=== PATIENT | male | born 1955 | race Caucasian/White ===

== ENCOUNTER 2017-05-11 07:15 | Emergency (ER) | payer OTHER ==
[~2017-05-11] VITALS: Ht 180.3 cm; Wt 108.9 kg
[2017-05-11] MEDS ORDERED: QUINAPRIL10 M1 PO (07:36)
[2017-05-11] MEDS ORDERED: TOPIRAMATE100 M2 PO (07:37)
[2017-05-11] MEDS ORDERED: ASPIRIN ADULT L81 M2 PO (07:37)
[2017-05-11] MEDS ORDERED: B COMPLETE1 EACH PO (07:37)
[2017-05-11] MEDS ORDERED: VITAMIN C500 M6 PO (07:38)
[2017-05-11] MEDS ORDERED: VITAMIN D1000 IU PO (07:38)
[2017-05-11] MEDS ORDERED: CALCIUM500 M1 PO (07:39)
[2017-05-11] MEDS ORDERED: MAGNESIUM250 M1 PO (07:40)
[2017-05-11] MEDS ORDERED: B121000 MCG/1 IM (07:41)
[2017-05-11] MEDS ORDERED: OMEPRAZOLE20 M2 PO (07:43)
[2017-05-11] MEDS ORDERED: PERCOCET 325 MG1 TA7 PO (08:37)
[2017-05-11 09:00] VITALS: BP 149/84
== END 2017-05-11 08:47 | disposition home or self-care (01) ==
LOC: ED 07:15
DX: S52.502A Unspecified fracture of the lower end of left radius, initial encounter for closed fracture (principal); S52.615A Nondisplaced fracture of left ulna styloid process, initial encounter for closed fracture; Z79.82 Long term (current) use of aspirin; Z79.899 Other long term (current) drug therapy; W18.30XA Fall on same level, unspecified, initial encounter; Y93.89 Activity, other specified; Y92.9 Unspecified place or not applicable; Y99.9 Unspecified external cause status

== ENCOUNTER → 2017-05-12 | Outpatient (CLI) | payer OTHER ==
[~2017-05-12] MED LIST: ASPIRIN ADULT L81 M2 PO; B COMPLETE1 EACH PO; B121000 MCG/1 IM; CALCIUM500 M1 PO; MAGNESIUM250 M1 PO; OMEPRAZOLE20 M2 PO; PERCOCET 325 MG1 TA7 PO; QUINAPRIL10 M1 PO; TOPIRAMATE100 M2 PO; VITAMIN C500 M6 PO; VITAMIN D1000 IU PO
== END | disposition home or self-care (01) ==
LOC: ORTHO 04:06
DX: S52.592A Other fractures of lower end of left radius, initial encounter for closed fracture (principal); X58.XXXA Exposure to other specified factors, initial encounter; Y93.89 Activity, other specified; Y92.89 Other specified places as the place of occurrence of the external cause; Y99.8 Other external cause status

== ENCOUNTER 2021-09-28 11:39 | Inpatient (IN) | payer MEDICARE ==
[~2021-09-28] VITALS: Ht 180.3 cm; Wt 119.4 kg
[2021-09-28] VITALS (7 sets, daily range): BP systolic 107–154; BP diastolic 65–92
[2021-09-28 12:20] LABS: BASO % 0.9 % (0.0-1.0); EOS # 0.2 10*3/uL (0.0-0.4); EOS % 3.4 % (1.0-4.0); HEMATOCRIT 42.2 % (42.0-52.0); LYMPH % 21.9 % (27.0-41.0); MEAN CELL VOLUME 90.4 fl (80.0-94.0); MEAN CORPUSCULAR HGB 28.9 pg (27.0-31.0); MEAN PLATELET VOLUME 7.7 fl (9.6-12.3); MONO # 0.5 10*3/uL (0.1-1.0); MONO % 11.2 % (3.0-9.0); NEUT # 2.8 10*3/uL (2.3-7.9); NEUT % 62.6 % (47.0-73.0); PLATELET COUNT AUTOMATED 209 10*3/uL (130-400); RED BLOOD COUNT 4.67 10*6/uL (4.50-5.90); RED CELL DISTRI WIDTH 13.4 % (0-14.5); WHITE BLOOD COUNT 4.4 10*3/uL (4.8-10.8)
[2021-09-28 12:31] LABS: ACT PARTIAL THROMBO TIME 26.6 SECONDS (20.0-32.1); INTERNATIONAL NORM RATIO 0.9 (2.0-3.5)
[2021-09-28 12:37] LABS: ALBUMIN 3.3 gm/dl (3.1-4.5); ALKALINE PHOSPHATASE 126 U/L (45-117); BUN 14 mg/dl (7-24); CHLORIDE 111 mmol/L (98-107); CREATININE 0.72 mg/dL (0.70-1.30); LIPASE 256 U/L (73-393); POTASSIUM 4.4 mmol/L (3.5-5.1); SGOT/AST 24 IU/L (3-35); SGPT/ALT 20 U/L (12-78); SODIUM 141 mmol/L (136-145)
[2021-09-28 15:18] LABS: BILIRUBIN Negative (Negative); BLOOD Negative (Negative); CLARITY Clear (Clear); COLOR Yellow (Yellow); GLUCOSE Negative (Negative); KETONE 1+ (Negative); LEUKO ESTERASE Trace (Negative); NITRITE Negative (Negative); PH 5.5 (4.5-8.0); SPECIFIC GRAVITY 1.025 (1.001-1.030)
[2021-09-28 15:25] LABS: BACTERIA TRACE; EPITHELIAL CELLS 0-2; RBC 0-2 rbc/hpf (0-2)
[2021-09-29] VITALS (7 sets, daily range): BP systolic 106–143; BP diastolic 54–78
[2021-09-29 06:44] LABS: BASO % 0.8 % (0.0-1.0); EOS # 0.1 10*3/uL (0.0-0.4); EOS % 3.3 % (1.0-4.0); HEMATOCRIT 36.4 % (42.0-52.0); LYMPH # 1.3 10*3/uL (1.3-4.4); LYMPH % 33.5 % (27.0-41.0); MEAN CELL VOLUME 90.3 fl (80.0-94.0); MEAN CORPUSCULAR HGB 28.8 pg (27.0-31.0); MEAN CORPUSCULAR HGB CONC 31.9 g/dl (33.0-37.0); MEAN PLATELET VOLUME 8.4 fl (9.6-12.3); MONO # 0.6 10*3/uL (0.1-1.0); MONO % 14.8 % (3.0-9.0); NEUT # 1.9 10*3/uL (2.3-7.9); NEUT % 47.6 % (47.0-73.0); PLATELET COUNT AUTOMATED 185 10*3/uL (130-400); RED BLOOD COUNT 4.03 10*6/uL (4.50-5.90); RED CELL DISTRI WIDTH 13.4 % (0-14.5); WHITE BLOOD COUNT 3.9 10*3/uL (4.8-10.8)
[2021-09-29 06:46] LABS: ALBUMIN 2.6 gm/dl (3.1-4.5); ALKALINE PHOSPHATASE 109 U/L (45-117); BUN 20 mg/dl (7-24); CHLORIDE 106 mmol/L (98-107); CHOLESTEROL 119 mg/dL (<200); CREATININE 0.71 mg/dL (0.70-1.30); LDL CHOLESTEROL 19 mg/dL (9-159); POTASSIUM 3.8 mmol/L (3.5-5.1); SGOT/AST 17 IU/L (3-35); SGPT/ALT 17 U/L (12-78); SODIUM 140 mmol/L (136-145); TOTAL PROTEIN 5.8 gm/dL (6.4-8.2); TRIGLYCERIDES 108 mg/dl (<150)
[2021-09-30] VITALS: BP 120/83
[2021-09-30 06:13] LABS: BASO % 0.8 % (0.0-1.0); EOS # 0.1 10*3/uL (0.0-0.4); EOS % 3.3 % (1.0-4.0); HEMATOCRIT 37.4 % (42.0-52.0); LYMPH % 24.5 % (27.0-41.0); MEAN CELL VOLUME 89.9 fl (80.0-94.0); MEAN CORPUSCULAR HGB 28.8 pg (27.0-31.0); MEAN CORPUSCULAR HGB CONC 32.1 g/dl (33.0-37.0); MEAN PLATELET VOLUME 8.3 fl (9.6-12.3); MONO # 0.5 10*3/uL (0.1-1.0); NEUT # 2.3 10*3/uL (2.3-7.9); NEUT % 59.1 % (47.0-73.0); PLATELET COUNT AUTOMATED 186 10*3/uL (130-400); RED BLOOD COUNT 4.16 10*6/uL (4.50-5.90); RED CELL DISTRI WIDTH 13.2 % (0-14.5); WHITE BLOOD COUNT 3.9 10*3/uL (4.8-10.8)
[2021-09-30 06:52] LABS: BUN 17 mg/dl (7-24); CHLORIDE 109 mmol/L (98-107); CREATININE 0.66 mg/dL (0.70-1.30); POTASSIUM 3.7 mmol/L (3.5-5.1); SODIUM 140 mmol/L (136-145)
[2021-09-30 08:00] VITALS: BP 114/68
[2021-09-30 12:00] VITALS: BP 118/70
[2021-09-30 16:00] VITALS: BP 98/65
[2021-09-30 20:00] VITALS: BP 107/61
[2021-10-01] VITALS: BP 113/69
[2021-10-01 08:00] VITALS: BP 105/58
[2021-10-01 13:41] VITALS: BP 148/80
[2021-10-01 16:00] VITALS: BP 128/73
[2021-10-01 20:00] VITALS: BP 109/66
[2021-10-02] VITALS: BP 102/63
[2021-10-02 08:00] VITALS: BP 104/66
[2021-10-02] MEDS ORDERED: LOPRESSOR25 MG PO (08:23)
[2021-10-02] MEDS ORDERED: CLOPIDOGREL75 MG PO (08:23)
[2021-10-02] MEDS ORDERED: ATORVASTATIN CA80 M1 PO (08:23)
== END 2021-10-02 10:18 | disposition home or self-care (01) | DRG 69 ==
LOC: ED 11:39 → EDHOLD 13:34 → 4E 13:34 → EDHOLD 15:12 → 4E 09-29 01:16
PROVIDERS: Hospitalist; Internal Medicine; Physician Assistant; ADMIT Emergency Medicine; ATTEND Emergency Medicine
PROC: 4A02XM4 Measurement of Cardiac Total Activity, External Approach (ICD-10-PCS; principal; 2021-10-01)
PROC: 3E073KZ Introduction of Other Diagnostic Substance into Coronary Artery, Percutaneous Approach (ICD-10-PCS; 2021-10-01)
DX: G45.9 Transient cerebral ischemic attack, unspecified (principal); E87.2 Acidosis; I47.1 Supraventricular tachycardia; I69.354 Hemiplegia and hemiparesis following cerebral infarction affecting left non-dominant side; D64.9 Anemia, unspecified; E78.5 Hyperlipidemia, unspecified; I10 Essential (primary) hypertension; Z82.3 Family history of stroke; Z87.891 Personal history of nicotine dependence; I25.2 Old myocardial infarction; Z82.49 Family history of ischemic heart disease and other diseases of the circulatory system

== ENCOUNTER → 2021-12-01 | Day surgery (SDC) | payer MEDICARE ==
[~2021-12-01] VITALS: Ht 180.3 cm; Wt 122.0 kg
[~2021-12-01] MED LIST changes: +ATORVASTATIN CA80 M1 PO; +CLOPIDOGREL75 MG PO; +LOPRESSOR25 MG PO
[2021-12-01 10:20] VITALS: BP 112/60
[2021-12-01 11:54] VITALS: BP 84/49
[2021-12-01 12:10] VITALS: BP 90/50
[2021-12-01 12:24] VITALS: BP 92/60
[2021-12-01 14:53] VITALS: BP 84/49
== END | disposition home or self-care (01) ==
LOC: SDC 11-27 12:30
PROVIDERS: ATTEND Internal Medicine Cardiovascular Disease
DX: R53.82 Chronic fatigue, unspecified (principal); I63.9 Cerebral infarction, unspecified; Q21.1 Atrial septal defect; I10 Essential (primary) hypertension; I25.10 Atherosclerotic heart disease of native coronary artery without angina pectoris; E11.9 Type 2 diabetes mellitus without complications; M19.90 Unspecified osteoarthritis, unspecified site; G40.909 Epilepsy, unspecified, not intractable, without status epilepticus; I25.2 Old myocardial infarction; Z20.822 Contact with and (suspected) exposure to COVID-19; Z79.899 Other long term (current) drug therapy

== ENCOUNTER → 2022-03-30 | Outpatient (CLI) | payer MEDICARE | END | disposition home or self-care (01) | LOC: ORTHO 04:59 | PROVIDERS: ATTEND Orthopaedic Surgery | DX: M25.852 Other specified joint disorders, left hip (principal); Z96.642 Presence of left artificial hip joint ==

== ENCOUNTER → 2023-01-27 | Outpatient (CLI) | payer MEDICARE ==
[2023-01-28 02:06] LABS: TOTAL PROTEIN, SERUM 6.5 g/dL (6.0-8.5)
[2023-01-28 14:07] LABS: A/G RATIO 1.4 (0.7-1.7); ALBUMIN 3.8 g/dL (2.9-4.4); ALPHA-1-GLOBULIN 0.2 g/dL (0.0-0.4); ALPHA-2-GLOBULIN 0.8 g/dL (0.4-1.0); GAMMA GLOBULIN 0.7 g/dL (0.4-1.8); GLOBULIN, TOTAL 2.7 g/dL (2.2-3.9); M-SPIKE Not Observed g/dL (Not Observed)
== END | disposition home or self-care (01) ==
LOC: LAB 08:37
PROVIDERS: ATTEND Physician Assistant Medical
DX: G62.9 Polyneuropathy, unspecified (principal); Z98.84 Bariatric surgery status

== ENCOUNTER → 2023-04-07 | Outpatient (CLI) | payer MEDICARE ==
[2023-04-07 10:04] LABS: BASO % 0.4 % (0.0-1.0); EOS # 0.2 10*3/uL (0.0-0.4); EOS % 3.4 % (1.0-4.0); HEMATOCRIT 43.2 % (42.0-52.0); LYMPH # 1.2 10*3/uL (1.3-4.4); LYMPH % 24.2 % (27.0-41.0); MEAN CELL VOLUME 91.5 fl (80.0-94.0); MEAN CORPUSCULAR HGB 29.2 pg (27.0-31.0); MEAN CORPUSCULAR HGB CONC 31.9 g/dl (33.0-37.0); MEAN PLATELET VOLUME 8.7 fl (9.6-12.3); MONO # 0.5 10*3/uL (0.1-1.0); NEUT # 3.1 10*3/uL (2.3-7.9); NEUT % 62.8 % (47.0-73.0); PLATELET COUNT AUTOMATED 208 10*3/uL (130-400); RED BLOOD COUNT 4.72 10*6/uL (4.50-5.90)
[2023-04-07 10:31] LABS: BUN 12 mg/dl (9-23); CHLORIDE 109 mmol/L (98-107); CHOLESTEROL 115 mg/dL (<200); LDL CHOLESTEROL 23 mg/dL (9-159); POTASSIUM 3.8 mmol/L (3.4-5.1); TRIGLYCERIDES 97 mg/dl (<150)
== END | disposition home or self-care (01) ==
LOC: LAB 09:21
PROVIDERS: ATTEND Nurse Practitioner Family
DX: I10 Essential (primary) hypertension (principal); E53.8 Deficiency of other specified B group vitamins; D64.9 Anemia, unspecified

== ENCOUNTER → 2023-06-18 | Outpatient (CLI) | payer MEDICARE | END | disposition home or self-care (01) | LOC: MRI 12:34 | PROVIDERS: ATTEND Specialist | DX: H93.12 Tinnitus, left ear (principal) ==

== ENCOUNTER → 2023-07-21 | Outpatient (CLI) | payer MEDICARE ==
[2023-07-21 09:32] LABS: BASO % 0.6 % (0.0-1.0); EOS # 0.1 10*3/uL (0.0-0.4); EOS % 2.1 % (1.0-4.0); HEMATOCRIT 45.4 % (42.0-52.0); LYMPH # 1.2 10*3/uL (1.3-4.4); LYMPH % 26.4 % (27.0-41.0); MEAN CELL VOLUME 90.3 fl (80.0-94.0); MEAN CORPUSCULAR HGB 29.6 pg (27.0-31.0); MEAN CORPUSCULAR HGB CONC 32.8 g/dl (33.0-37.0); MEAN PLATELET VOLUME 8.2 fl (9.6-12.3); MONO # 0.5 10*3/uL (0.1-1.0); MONO % 10.3 % (3.0-9.0); NEUT # 2.8 10*3/uL (2.3-7.9); NEUT % 60.4 % (47.0-73.0); PLATELET COUNT AUTOMATED 189 10*3/uL (130-400); RED BLOOD COUNT 5.03 10*6/uL (4.50-5.90); RED CELL DISTRI WIDTH 14.4 % (0-14.5); WHITE BLOOD COUNT 4.7 10*3/uL (4.8-10.8)
[2023-07-21 10:14] LABS: ALKALINE PHOSPHATASE 142 U/L (46-116); BUN 20 mg/dl (9-23); CHLORIDE 106 mmol/L (98-107); CHOLESTEROL 110 mg/dL (<200); LDL CHOLESTEROL 23 mg/dL (9-159); POTASSIUM 4.1 mmol/L (3.4-5.1); SGPT/ALT 12 U/L (10-49); TOTAL PROTEIN 6.5 gm/dL (6.0-8.0); TRIGLYCERIDES 111 mg/dl (<150)
== END | disposition home or self-care (01) ==
LOC: LAB 09:02
PROVIDERS: ATTEND Nurse Practitioner Family
DX: I10 Essential (primary) hypertension (principal); G47.33 Obstructive sleep apnea (adult) (pediatric); E53.8 Deficiency of other specified B group vitamins; H93.12 Tinnitus, left ear

== ENCOUNTER → 2023-07-30 | Outpatient (CLI) | payer MEDICARE | END | disposition home or self-care (01) | LOC: LAB 08:33 | PROVIDERS: ATTEND Nurse Practitioner Family | DX: I10 Essential (primary) hypertension (principal); E53.8 Deficiency of other specified B group vitamins; I25.811 Atherosclerosis of native coronary artery of transplanted heart without angina pectoris; G47.33 Obstructive sleep apnea (adult) (pediatric); R53.83 Other fatigue; Z23 Encounter for immunization ==

== ENCOUNTER → 2023-11-05 | Outpatient (CLI) | payer MEDICARE ==
[2023-11-05 10:03] LABS: BASO % 0.6 % (0.0-1.0); EOS # 0.2 10*3/uL (0.0-0.4); HEMATOCRIT 44.2 % (42.0-52.0); LYMPH # 1.2 10*3/uL (1.3-4.4); LYMPH % 21.8 % (27.0-41.0); MEAN CELL VOLUME 93.2 fl (80.0-94.0); MEAN CORPUSCULAR HGB 29.7 pg (27.0-31.0); MEAN CORPUSCULAR HGB CONC 31.9 g/dl (33.0-37.0); MEAN PLATELET VOLUME 8.6 fl (9.6-12.3); MONO # 0.6 10*3/uL (0.1-1.0); MONO % 10.5 % (3.0-9.0); NEUT # 3.4 10*3/uL (2.3-7.9); NEUT % 63.9 % (47.0-73.0); PLATELET COUNT AUTOMATED 217 10*3/uL (130-400); RED BLOOD COUNT 4.74 10*6/uL (4.50-5.90); RED CELL DISTRI WIDTH 13.4 % (0-14.5); WHITE BLOOD COUNT 5.3 10*3/uL (4.8-10.8)
[2023-11-05 10:29] LABS: ALKALINE PHOSPHATASE 143 U/L (46-116); BUN 17 mg/dl (9-23); CHLORIDE 108 mmol/L (98-107); CHOLESTEROL 104 mg/dL (<200); LDL CHOLESTEROL 20 mg/dL (9-159); POTASSIUM 3.5 mmol/L (3.4-5.1); SGPT/ALT 14 U/L (5-49); TOTAL PROTEIN 6.8 gm/dL (6.0-8.0); TRIGLYCERIDES 89 mg/dl (<150)
== END | disposition home or self-care (01) ==
LOC: LAB 09:07
PROVIDERS: ATTEND Nurse Practitioner Family
DX: I10 Essential (primary) hypertension (principal); E53.8 Deficiency of other specified B group vitamins; G47.33 Obstructive sleep apnea (adult) (pediatric); I25.811 Atherosclerosis of native coronary artery of transplanted heart without angina pectoris; R53.83 Other fatigue; Z23 Encounter for immunization

== ENCOUNTER → 2023-12-15 | Outpatient (CLI) | payer MEDICARE | END | disposition home or self-care (01) | LOC: LAB 09:02 | PROVIDERS: ATTEND Nurse Practitioner Family | DX: I10 Essential (primary) hypertension (principal) ==

== ENCOUNTER → 2023-12-22 | Outpatient (CLI) | payer MEDICARE ==
[~2023-12-22] MED LIST changes: +IOHEXOL 300 MG/ML 100 ML VIAL IV ONE
== END | disposition home or self-care (01) ==
LOC: CT 03:25
PROVIDERS: ATTEND Nurse Practitioner Family
DX: R91.1 Solitary pulmonary nodule (principal); I71.21 Aneurysm of the ascending aorta, without rupture; K80.20 Calculus of gallbladder without cholecystitis without obstruction; I25.811 Atherosclerosis of native coronary artery of transplanted heart without angina pectoris; I10 Essential (primary) hypertension; E53.8 Deficiency of other specified B group vitamins; R63.4 Abnormal weight loss; R05.3 Chronic cough; Z87.891 Personal history of nicotine dependence

== ENCOUNTER → 2024-02-15 | Outpatient (CLI) | payer MEDICARE ==
[~2024-02-15] MED LIST changes: -IOHEXOL 300 MG/ML 100 ML VIAL IV ONE
[2024-02-15 15:32] LABS: BASO % 0.4 % (0.0-1.0); EOS # 0.1 10*3/uL (0.0-0.4); EOS % 1.6 % (1.0-4.0); HEMATOCRIT 40.2 % (42.0-52.0); LYMPH # 1.1 10*3/uL (1.3-4.4); LYMPH % 16.8 % (27.0-41.0); MEAN CELL VOLUME 95.3 fl (80.0-94.0); MEAN CORPUSCULAR HGB 30.8 pg (27.0-31.0); MEAN CORPUSCULAR HGB CONC 32.3 g/dl (33.0-37.0); MEAN PLATELET VOLUME 7.8 fl (9.6-12.3); MONO # 0.9 10*3/uL (0.1-1.0); MONO % 12.8 % (3.0-9.0); NEUT # 4.6 10*3/uL (2.3-7.9); PLATELET COUNT AUTOMATED 200 10*3/uL (130-400); RED BLOOD COUNT 4.22 10*6/uL (4.50-5.90); RED CELL DISTRI WIDTH 14.2 % (0-14.5); WHITE BLOOD COUNT 6.8 10*3/uL (4.8-10.8)
[2024-02-15 15:54] LABS: ALKALINE PHOSPHATASE 99 U/L (46-116); BUN 18 mg/dl (9-23); CHLORIDE 108 mmol/L (98-107); POTASSIUM 4.1 mmol/L (3.4-5.1); SGPT/ALT 13 U/L (5-49); TOTAL PROTEIN 6.2 gm/dL (6.0-8.0)
== END | disposition home or self-care (01) ==
LOC: LAB 15:18
PROVIDERS: ATTEND Nurse Practitioner Family
DX: I10 Essential (primary) hypertension (principal); G47.33 Obstructive sleep apnea (adult) (pediatric); R60.0 Localized edema; R35.0 Frequency of micturition

== ENCOUNTER → 2024-02-22 | Outpatient (CLI) | payer MEDICARE | END | disposition home or self-care (01) | LOC: LAB 12:43 | PROVIDERS: ATTEND Nurse Practitioner Family | DX: I10 Essential (primary) hypertension (principal); G47.33 Obstructive sleep apnea (adult) (pediatric); R60.0 Localized edema; R35.0 Frequency of micturition ==

== ENCOUNTER → 2024-04-05 | Outpatient (CLI) | payer MEDICARE ==
[2024-04-05 09:36] LABS: BASO % 0.5 % (0.0-1.0); EOS # 0.1 10*3/uL (0.0-0.4); EOS % 3.2 % (1.0-4.0); HEMATOCRIT 36.7 % (42.0-52.0); LYMPH # 1.2 10*3/uL (1.3-4.4); LYMPH % 30.8 % (27.0-41.0); MEAN CELL VOLUME 93.4 fl (80.0-94.0); MEAN CORPUSCULAR HGB 30.5 pg (27.0-31.0); MEAN CORPUSCULAR HGB CONC 32.7 g/dl (33.0-37.0); MEAN PLATELET VOLUME 8.1 fl (9.6-12.3); MONO # 0.5 10*3/uL (0.1-1.0); MONO % 13.4 % (3.0-9.0); NEUT # 2.1 10*3/uL (2.3-7.9); NEUT % 51.4 % (47.0-73.0); PLATELET COUNT AUTOMATED 192 10*3/uL (130-400); RED BLOOD COUNT 3.93 10*6/uL (4.50-5.90); RED CELL DISTRI WIDTH 12.4 % (0-14.5)
[2024-04-05 10:25] LABS: ALKALINE PHOSPHATASE 121 U/L (46-116); BUN 21 mg/dl (9-23); CHLORIDE 110 mmol/L (98-107); CHOLESTEROL 117 mg/dL (<200); LDL CHOLESTEROL 31 mg/dL (9-159); POTASSIUM 3.5 mmol/L (3.4-5.1); SGPT/ALT 34 U/L (5-49); TOTAL PROTEIN 6.1 gm/dL (6.0-8.0); TRIGLYCERIDES 81 mg/dl (<150)
== END | disposition home or self-care (01) ==
LOC: LAB 09:10
PROVIDERS: ATTEND Nurse Practitioner Family
DX: I10 Essential (primary) hypertension (principal); R93.89 Abnormal findings on diagnostic imaging of other specified body structures

== ENCOUNTER → 2024-07-19 | Outpatient (CLI) | payer MEDICARE ==
[2024-07-19 09:23] LABS: BASO % 0.5 % (0.0-1.0); EOS # 0.2 10*3/uL (0.0-0.4); EOS % 2.5 % (1.0-4.0); LYMPH # 1.5 10*3/uL (1.3-4.4); LYMPH % 24.5 % (27.0-41.0); MEAN CELL VOLUME 87.2 fl (80.0-94.0); MEAN CORPUSCULAR HGB 26.6 pg (27.0-31.0); MEAN CORPUSCULAR HGB CONC 30.5 g/dl (33.0-37.0); MEAN PLATELET VOLUME 8.1 fl (9.6-12.3); MONO # 0.6 10*3/uL (0.1-1.0); MONO % 9.4 % (3.0-9.0); NEUT # 3.9 10*3/uL (2.3-7.9); NEUT % 62.6 % (47.0-73.0); PLATELET COUNT AUTOMATED 241 10*3/uL (130-400); RED BLOOD COUNT 4.47 10*6/uL (4.50-5.90); RED CELL DISTRI WIDTH 15.2 % (0-14.5); WHITE BLOOD COUNT 6.3 10*3/uL (4.8-10.8)
[2024-07-19 10:21] LABS: ALKALINE PHOSPHATASE 127 U/L (46-116); BUN 22 mg/dl (9-23); CHLORIDE 106 mmol/L (98-107); CHOLESTEROL 108 mg/dL (<200); LDL CHOLESTEROL 22 mg/dL (9-159); POTASSIUM 3.4 mmol/L (3.4-5.1); SGPT/ALT 10 U/L (5-49); TOTAL PROTEIN 6.8 gm/dL (6.0-8.0); TRIGLYCERIDES 91 mg/dl (<150)
== END | disposition home or self-care (01) ==
LOC: LAB 08:56
PROVIDERS: ATTEND Nurse Practitioner Family
DX: I10 Essential (primary) hypertension (principal); I25.811 Atherosclerosis of native coronary artery of transplanted heart without angina pectoris; G47.33 Obstructive sleep apnea (adult) (pediatric); R89.9 Unspecified abnormal finding in specimens from other organs, systems and tissues; Z79.899 Other long term (current) drug therapy

== ENCOUNTER → 2024-07-24 | Outpatient (CLI) | payer MEDICARE | END | disposition home or self-care (01) | LOC: RAD 12:55 | PROVIDERS: ATTEND Nurse Practitioner Family | DX: M13.842 Other specified arthritis, left hand (principal); M25.532 Pain in left wrist ==

== ENCOUNTER → 2024-07-31 | Outpatient (CLI) | payer MEDICARE ==
[~2024-07-31] MED LIST changes: +GADOTERATE MEGLUMINE 10 MMOL/20 ML VIAL IV ONE; +GADOTERATE MEGLUMINE 5 MMOL/10 ML VIAL IV ONE; +SODIUM CHLORIDE 0.9% 50 ML IV ONE
== END | disposition home or self-care (01) ==
LOC: MRI 11:52
PROVIDERS: ATTEND Physician Assistant
DX: K80.20 Calculus of gallbladder without cholecystitis without obstruction (principal); N28.1 Cyst of kidney, acquired; K85.90 Acute pancreatitis without necrosis or infection, unspecified

== ENCOUNTER → 2024-11-03 | Outpatient (CLI) | payer MEDICARE ==
[~2024-11-03] MED LIST changes: -GADOTERATE MEGLUMINE 10 MMOL/20 ML VIAL IV ONE; -GADOTERATE MEGLUMINE 5 MMOL/10 ML VIAL IV ONE; -SODIUM CHLORIDE 0.9% 50 ML IV ONE
[2024-11-03 10:52] LABS: BASO % 0.8 % (0.0-1.0); EOS # 0.1 10*3/uL (0.0-0.4); EOS % 2.5 % (1.0-4.0); HEMATOCRIT 36.3 % (42.0-52.0); MEAN CORPUSCULAR HGB 25.5 pg (27.0-31.0); MEAN PLATELET VOLUME 7.9 fl (9.6-12.3); MONO # 0.3 10*3/uL (0.1-1.0); MONO % 7.2 % (3.0-9.0); NEUT # 2.8 10*3/uL (2.3-7.9); NEUT % 59.1 % (47.0-73.0); PLATELET COUNT AUTOMATED 237 10*3/uL (130-400); RED BLOOD COUNT 4.27 10*6/uL (4.50-5.90); RED CELL DISTRI WIDTH 16.3 % (0-14.5); WHITE BLOOD COUNT 4.7 10*3/uL (4.8-10.8)
[2024-11-03 11:37] LABS: ALKALINE PHOSPHATASE 121 U/L (46-116); BUN 22 mg/dl (9-23); CHLORIDE 108 mmol/L (98-107); CHOLESTEROL 111 mg/dL (<200); LDL CHOLESTEROL 28 mg/dL (9-159); POTASSIUM 3.8 mmol/L (3.4-5.1); SGPT/ALT 12 U/L (5-49); TOTAL PROTEIN 6.6 gm/dL (6.0-8.0); TRIGLYCERIDES 42 mg/dl (<150); VITAMIN D, 25-HYDROXY 60.1 ng/mL (30-100)
== END | disposition home or self-care (01) ==
LOC: LAB 10:30
PROVIDERS: ATTEND Nurse Practitioner Family
DX: I10 Essential (primary) hypertension (principal); I25.118 Atherosclerotic heart disease of native coronary artery with other forms of angina pectoris; G47.33 Obstructive sleep apnea (adult) (pediatric); R89.9 Unspecified abnormal finding in specimens from other organs, systems and tissues; R56.9 Unspecified convulsions; R53.1 Weakness; I63.9 Cerebral infarction, unspecified; E53.8 Deficiency of other specified B group vitamins; Z23 Encounter for immunization; E55.9 Vitamin D deficiency, unspecified

== ENCOUNTER → 2024-11-20 | Outpatient (CLI) | payer MEDICARE | END | disposition home or self-care (01) | LOC: US 10:16 | PROVIDERS: ATTEND Nurse Practitioner Family | DX: R09.89 Other specified symptoms and signs involving the circulatory and respiratory systems (principal) ==

== ENCOUNTER → 2025-02-05 | Outpatient (CLI) | payer MEDICARE ==
[2025-02-05 09:38] LABS: BASO % 0.4 % (0.0-1.0); EOS # 0.2 10*3/uL (0.0-0.4); EOS % 3.1 % (1.0-4.0); HEMATOCRIT 36.8 % (42.0-52.0); MEAN CELL VOLUME 83.8 fl (80.0-94.0); MEAN CORPUSCULAR HGB 25.3 pg (27.0-31.0); MEAN CORPUSCULAR HGB CONC 30.2 g/dl (33.0-37.0); MEAN PLATELET VOLUME 7.9 fl (9.6-12.3); MONO # 0.5 10*3/uL (0.1-1.0); MONO % 9.4 % (3.0-9.0); NEUT # 2.9 10*3/uL (2.3-7.9); NEUT % 60.7 % (47.0-73.0); PLATELET COUNT AUTOMATED 231 10*3/uL (130-400); RED BLOOD COUNT 4.39 10*6/uL (4.50-5.90); WHITE BLOOD COUNT 4.8 10*3/uL (4.8-10.8)
[2025-02-05 10:10] LABS: ALKALINE PHOSPHATASE 139 U/L (46-116); BUN 23 mg/dl (9-23); CHLORIDE 105 mmol/L (98-107); POTASSIUM 3.4 mmol/L (3.4-5.1); SGPT/ALT 12 U/L (5-49); TOTAL PROTEIN 6.7 gm/dL (6.0-8.0)
== END | disposition home or self-care (01) ==
LOC: LAB 09:10
PROVIDERS: ATTEND Nurse Practitioner Primary Care
DX: I10 Essential (primary) hypertension (principal); R94.6 Abnormal results of thyroid function studies; D50.9 Iron deficiency anemia, unspecified; E53.8 Deficiency of other specified B group vitamins

== ENCOUNTER 2025-02-18 14:39 | Emergency (ER) | payer MEDICARE ==
[~2025-02-18] VITALS: Ht 172.7 cm; Wt 108.4 kg
[2025-02-18 15:14] VITALS: BP 91/50
[2025-02-18] MEDS ORDERED: SODIUM CHLORIDE 0.9% 500 ML IV ONE (15:15)
[2025-02-18] MEDS ORDERED: SODIUM CHLORIDE 0.9% 1,000 ML IV ONE (15:15)
[2025-02-18] MEDS ORDERED: IOHEXOL 300 MG/ML 100 ML VIAL IV ONE (15:20)
[2025-02-18] MEDS ORDERED: TOPROL XL25 MG PO (15:43)
[2025-02-18] MEDS ORDERED: TRIAMTERENE-HC1 EAC2 PO (15:43)
[2025-02-18] MEDS ORDERED: ZESTRIL5 MG PO (15:43)
[2025-02-18 15:44] LABS: BASO % 0.7 % (0.0-1.0); EOS # 0.1 10*3/uL (0.0-0.4); EOS % 3.1 % (1.0-4.0); HEMATOCRIT 33.7 % (42.0-52.0); MEAN CELL VOLUME 84.3 fl (80.0-94.0); MEAN CORPUSCULAR HGB 25.5 pg (27.0-31.0); MEAN CORPUSCULAR HGB CONC 30.3 g/dl (33.0-37.0); MEAN PLATELET VOLUME 8.2 fl (9.6-12.3); MONO # 0.5 10*3/uL (0.1-1.0); MONO % 10.7 % (3.0-9.0); NEUT # 2.9 10*3/uL (2.3-7.9); NEUT % 62.8 % (47.0-73.0); PLATELET COUNT AUTOMATED 213 10*3/uL (130-400); RED CELL DISTRI WIDTH 17.1 % (0-14.5); WHITE BLOOD COUNT 4.6 10*3/uL (4.8-10.8)
[2025-02-18] MEDS ORDERED: OMEPRAZOLE40 MG PO (15:44)
[2025-02-18] MEDS ORDERED: TOPAMAX100 M1 PO (15:44)
[2025-02-18] MEDS ORDERED: NATURE'S BLEND F1 MG PO (15:44)
[2025-02-18] MEDS ORDERED: FLOMAX0.4 MG PO (15:44)
[2025-02-18 16:23] LABS: ALKALINE PHOSPHATASE 112 U/L (46-116); BUN 25 mg/dl (9-23); CHLORIDE 109 mmol/L (98-107); LIPASE 76 U/L (12-53); POTASSIUM 3.8 mmol/L (3.4-5.1); SGPT/ALT 19 U/L (5-49)
== END 2025-02-18 19:03 | disposition home or self-care (01) ==
LOC: ED 14:39
PROVIDERS: Emergency Medicine
DX: R42 Dizziness and giddiness (principal); E86.0 Dehydration; I95.89 Other hypotension; R60.0 Localized edema; Z79.899 Other long term (current) drug therapy; Z98.84 Bariatric surgery status; Z87.891 Personal history of nicotine dependence

== ENCOUNTER → 2025-02-27 | Outpatient (CLI) | payer MEDICARE ==
[~2025-02-27] MED LIST changes: +FLOMAX0.4 MG PO; +IOHEXOL 350 MG/ML 100 ML VIAL IV ONE; +NATURE'S BLEND F1 MG PO; +OMEPRAZOLE40 MG PO; +SODIUM CHLORIDE 0.9% 100 ML BAG IV ONE; +SODIUM CHLORIDE 0.9% 100 ML IV ONE; +TOPAMAX100 M1 PO; +TOPROL XL25 MG PO; +TRIAMTERENE-HC1 EAC2 PO; +ZESTRIL5 MG PO
== END | disposition home or self-care (01) ==
LOC: CT 08:41
PROVIDERS: ATTEND Internal Medicine Cardiovascular Disease
DX: K80.20 Calculus of gallbladder without cholecystitis without obstruction (principal); I10 Essential (primary) hypertension; R20.9 Unspecified disturbances of skin sensation; R09.89 Other specified symptoms and signs involving the circulatory and respiratory systems; Z86.73 Personal history of transient ischemic attack (TIA), and cerebral infarction without residual deficits; M16.0 Bilateral primary osteoarthritis of hip

== ENCOUNTER → 2025-04-02 | Outpatient (CLI) | payer MEDICARE ==
[~2025-04-02] MED LIST changes: -IOHEXOL 350 MG/ML 100 ML VIAL IV ONE; -SODIUM CHLORIDE 0.9% 100 ML BAG IV ONE; -SODIUM CHLORIDE 0.9% 100 ML IV ONE
== END | disposition home or self-care (01) ==
LOC: NM 03:41
PROVIDERS: ATTEND Internal Medicine Endocrinology, Diabetes & Metabolism
DX: R20.9 Unspecified disturbances of skin sensation (principal); R09.89 Other specified symptoms and signs involving the circulatory and respiratory systems; I10 Essential (primary) hypertension; Z86.73 Personal history of transient ischemic attack (TIA), and cerebral infarction without residual deficits

== ENCOUNTER → 2025-04-12 | Outpatient (CLI) | payer MEDICARE | END | disposition home or self-care (01) | LOC: LAB 11:24 | PROVIDERS: ATTEND Nurse Practitioner Family | DX: R52 Pain, unspecified (principal); R63.30 Feeding difficulties, unspecified; D50.9 Iron deficiency anemia, unspecified; K29.60 Other gastritis without bleeding; R19.5 Other fecal abnormalities; R63.4 Abnormal weight loss; R68.81 Early satiety; Z79.899 Other long term (current) drug therapy; Z71.2 Person consulting for explanation of examination or test findings; Z89.029 Acquired absence of unspecified finger(s) ==

== ENCOUNTER → 2025-05-02 | Outpatient (CLI) | payer MEDICARE ==
[2025-05-02 09:47] LABS: LDL CHOLESTEROL 21 mg/dL (9-159)
== END ==
LOC: LAB 09:05
PROVIDERS: ATTEND Nurse Practitioner Primary Care
DX: I10 Essential (primary) hypertension (principal)

== ENCOUNTER → 2025-06-25 | Outpatient (CLI) | payer MEDICARE ==
[2025-06-25 10:07] LABS: FREE T4 1.29 ng/dl (0.89-1.76)
== END | disposition home or self-care (01) ==
LOC: LAB 08:52
PROVIDERS: ATTEND Internal Medicine Endocrinology, Diabetes & Metabolism
DX: E05.90 Thyrotoxicosis, unspecified without thyrotoxic crisis or storm (principal)

== ENCOUNTER → 2025-08-06 | Outpatient (CLI) | payer MEDICARE ==
[2025-08-06 10:02] LABS: BASO # 0.0 10*3/uL (0.0-0.1); BASO % 0.5 % (0.0-1.0); EOS # 0.1 10*3/uL (0.0-0.4); EOS % 2.9 % (1.0-4.0); MEAN CELL VOLUME 91.7 fl (80.0-94.0); MEAN CORPUSCULAR HGB 31.3 pg (27.0-31.0); MEAN PLATELET VOLUME 8.1 fl (9.6-12.3); MONO # 0.4 10*3/uL (0.1-1.0); MONO % 9.5 % (3.0-9.0); NEUT # 2.4 10*3/uL (2.3-7.9); NEUT % 59.0 % (47.0-73.0); NUCLEATED RED BLOOD CELL 0.0 % (0.0-0.0); NUCLEATED RED BLOOD CELL 0.0 10*3/uL (0.0-0.0); PLATELET COUNT AUTOMATED 140 10*3/uL (130-400); RED CELL DISTRI WIDTH 14.1 % (0-14.5)
[2025-08-06 10:43] LABS: BUN 18 mg/dl (9-23); SGPT/ALT 11 U/L (5-49)
[2025-08-07 08:08] LABS: ALPHA-1-ANTITRYPSIN, SERUM 143 mg/dL (101-187)
[2025-08-07 15:07] LABS: ANTI-SMOOTH MUSCLE ANTIBODY 5 Units (0-19)
== END | disposition home or self-care (01) ==
LOC: LAB 09:27
PROVIDERS: ATTEND Nurse Practitioner Family
DX: I10 Essential (primary) hypertension (principal); D64.9 Anemia, unspecified; K76.0 Fatty (change of) liver, not elsewhere classified; K90.9 Intestinal malabsorption, unspecified

== ENCOUNTER → 2025-08-27 | Outpatient (CLI) | payer MEDICARE | END | disposition home or self-care (01) | LOC: CT 07:39 | PROVIDERS: ATTEND Nurse Practitioner Primary Care | DX: I70.0 Atherosclerosis of aorta (principal); R91.1 Solitary pulmonary nodule; I25.10 Atherosclerotic heart disease of native coronary artery without angina pectoris; K80.20 Calculus of gallbladder without cholecystitis without obstruction; M47.814 Spondylosis without myelopathy or radiculopathy, thoracic region; M19.012 Primary osteoarthritis, left shoulder; M19.011 Primary osteoarthritis, right shoulder ==